=== PATIENT | female | born 1965 | race Caucasian/White ===

== ENCOUNTER → 2017-12-14 | Outpatient (CLI) | payer BC ==
[~2017-12-14] MED LIST: BUPR150ER PO; CALCAVITD PO; CHOL10002 PO; CLON.5 PO; CLON1 PO; CYCL10 PO; Coq-1030 MG PO; DHEA PO; DULO60 PO; ERGO50000 PO; ESCI10 PO; ESCI5; FISH OIL 1,0001 EAC1 PO; HYDACE5 PO; IBUP800; KETO10 PO; LORA.5 PO; LORA1; LORA1 PO; LOSA25 PO; MULVITMIND PO; Norco 10-325 T1 EACH PO; OXYACE5T PO; OXYB5 PO; PARO20; PROGESTERONE CREAM; PROM25 PO; RANI150 PO; RXCYCL10 PO; TRAZ150T57 PO; TRAZ50 PO; Zofran Odt4 MG SL
== END | disposition home or self-care (01) ==
LOC: LAB SHORT 08:02 → LAB 08:02
DX: L82.1 Other seborrheic keratosis (principal)
CPT/HCPCS: 88305

== ENCOUNTER 2017-12-19 17:34 | Emergency (ER) | payer BC ==
[~2017-12-19] VITALS: Ht 154.9 cm; Wt 74.8 kg
[~2017-12-19 17:34] MED LIST changes: -CHOL10002 PO; -Coq-1030 MG PO; -ESCI5; -FISH OIL 1,0001 EAC1 PO; -LORA1 PO; -LOSA25 PO; -OXYB5 PO
[2017-12-19 18:06] LABS: BASOPHILS ABSOLUTE AUTO 0.01 K/mm3 (0.00-0.23); BASOPHILS PERCENT AUTO 0 % (0-2); EOSINOPHILS ABSOLUTE AUTO 0.01 K/mm3 (0.00-0.68); EOSINOPHILS PERCENT AUTO 0 % (0-6); Hematocrit 41.2 % (33.0-51.0); Hemoglobin 13.8 g/dL (11.5-16.0); IMMATURE GRAN ABSOLUTE AUTO 0.01 K/mm3 (0.00-0.10); IMMATURE GRAN PERCENT AUTO 0 % (0-1); LYMPHOCYTES ABSOLUTE AUTO 1.21 K/mm3 (0.84-5.20); LYMPHOCYTES PERCENT AUTO 36 % (21-46); MONOCYTES ABSOLUTE AUTO 0.17 K/mm3 (0.16-1.47); MONOCYTES PERCENT AUTO 5 % (4-13); Mean Corpuscular HGB 30.1 pg (26.0-34.0); Mean Corpuscular HGB Conc 33.5 g/dL (31.5-36.5); Mean Corpuscular Volume 90 fL (80-100); Mean Platelet Volume 10.2 fL (9.1-12.4); NEUTROPHILS ABSOLUTE AUTO 1.98 K/mm3 (1.96-9.15); NEUTROPHILS PERCENT AUTO 58 % (41-73); Platelet Count 203 K/mm3 (150-400); RDW Coefficient Variation 12.4 % (11.7-14.2); RDW Standard Deviation 40.7 fL (35.1-46.3); Red Blood Cell Count 4.59 M/mm3 (3.80-5.20); White Blood Cell Count 3.39 K/mm3 (4.00-11.30)
[2017-12-19 18:29] LABS: Alanine Aminotransfer (ALT/SGP 22 U/L (12-78); Albumin, Blood 3.5 g/dL (3.4-5.0); Alk Phos 62 U/L (50-136); Anion Gap 10 mmol/L (6-16); Aspartate Aminotrans (AST/SGOT 22 U/L (12-37); Bilirubin, Total 0.2 mg/dL (0.1-1.0); Blood Urea Nitrogen 18 mg/dL (8-24); Bun/Creatinine Ratio 23.6 (12.0-20.0); CO2, Blood 23 mmol/L (21-32); Chloride, Blood 108 mmol/L (98-108); Creatinine, Blood 0.76 mg/dL (0.40-1.00); Globulin, Blood 3.6 g/dL (2.2-4.0); Glomerular Filtration Rate >60 (60-); Glucose, Blood 96 mg/dL (70-99); Potassium, Blood 3.7 mmol/L (3.5-5.5); Sodium, Blood 141 mmol/L (136-145); Total Protein, Blood 7.1 g/dL (6.4-8.2); Troponin I <0.015 ng/mL (0.000-0.040)
[2017-12-19] MEDS ORDERED: LOSA25 PO (18:45)
[2017-12-19] MEDS ORDERED: OXYB5 PO (18:45)
[2017-12-19] MEDS ORDERED: Coq-1030 MG PO (18:46)
[2017-12-19] MEDS ORDERED: LORA1 PO (18:46)
[2017-12-19] MEDS ORDERED: CHOL10002 PO (18:47)
[2017-12-19] MEDS ORDERED: FISH OIL 1,0001 EAC1 PO (18:47)
[2017-12-19 19:28] LABS: Influenza A Negative (NEGATIVE); Influenza B Negative (NEGATIVE)
[2017-12-19 20:44] LABS: Source, Urine Clean Catch
[2017-12-19 20:48] LABS: Appearance, Urine Clear (Clear); Bilirubin, Urine Neg (Neg); Blood, Urine Neg (Neg); Color, Urine Yellow (P-Yellow); Glucose Qualitative, Urine Neg (Neg); Ketones, Urine 1+ (Neg); Leukocyte Esterase, Urine 1+ (Neg); Nitrite, Urine Neg (Neg); Protein, Urine Neg (Neg); Urobilinogen, Urine NORM (Normal)
[2017-12-19 20:56] LABS: White Blood Cells, Urine 0-2 /hpf (0-5)
[2017-12-19 20:57] LABS: Bacteria Not Seen /hpf; Red Blood Cells, Urine Not Seen /hpf (0-2); Squamous Epithelial Cells Not Seen /hpf (Few)
[2018-08-27] MEDS ORDERED: ESCI5 ×2 (09:12→09:28)
== END 2017-12-19 22:06 | disposition home or self-care (01) ==
LOC: ER 17:34
PROVIDERS: Emergency Medicine
DX: R51 Headache (principal); R07.89 Other chest pain; R53.81 Other malaise; M79.1 Myalgia; Z88.8 Allergy status to other drugs, medicaments and biological substances; Z88.2 Allergy status to sulfonamides; Z79.899 Other long term (current) drug therapy; Z87.891 Personal history of nicotine dependence
CPT/HCPCS: 36415; 70450; 70496; 70498; 71046; 80053; 81001; 84484; 85025; 87077; 87086; 87186; 87804; 93005; 93010; 96361; 96374; 96375; 99284; J1100; J1170; J1200; J1885; J2405; J7030; Q9967

== ENCOUNTER → 2018-09-19 | Outpatient (CLI) | payer BC ==
[~2018-09-19] MED LIST changes: +CHOL10002 PO; +Coq-1030 MG PO; +ESCI5; +FISH OIL 1,0001 EAC1 PO; +LORA1 PO; +LOSA25 PO; +OXYB5 PO
== END ==
LOC: LAB SHORT 14:00 → LAB 14:00
PROVIDERS: Family Medicine
DX: Z12.72 Encounter for screening for malignant neoplasm of vagina (principal); Z90.710 Acquired absence of both cervix and uterus
CPT/HCPCS: G0145

== ENCOUNTER 2018-10-17 09:53 | Day surgery (SDC) | payer BC ==
[~2018-10-17] VITALS: Ht 152.4 cm; Wt 76.8 kg
[2018-10-17] MEDS ORDERED: NAPR220 PO (10:27)
[2018-10-17] MEDS ORDERED: ACET500 PO (10:28)
[2018-10-17] MEDS ORDERED: OSTEO BI-FLEX1 EAC2 PO (10:28)
== END 2018-10-17 11:30 | disposition home or self-care (01) ==
LOC: ORSCSDS 09:53
PROVIDERS: Internal Medicine Gastroenterology
PROC: 0DJD8ZZ Inspection of Lower Intestinal Tract, Via Natural or Artificial Opening Endoscopic (ICD-10-PCS; principal; 2018-10-17 11:15)
DX: Z12.11 Encounter for screening for malignant neoplasm of colon (principal); K44.9 Diaphragmatic hernia without obstruction or gangrene; Z87.891 Personal history of nicotine dependence; Z79.899 Other long term (current) drug therapy
CPT/HCPCS: J7120

== ENCOUNTER → 2019-11-28 | Outpatient (CLI) | payer BC ==
[~2019-11-28] MED LIST changes: +ACET500 PO; +NAPR220 PO; +OSTEO BI-FLEX1 EAC2 PO
== END | disposition home or self-care (01) ==
LOC: LAB 13:51 → LAB SHORT 13:51
PROVIDERS: Family Medicine
DX: Z12.72 Encounter for screening for malignant neoplasm of vagina (principal); Z90.710 Acquired absence of both cervix and uterus
CPT/HCPCS: G0123

== ENCOUNTER → 2020-11-30 | Outpatient (CLI) | payer BC | LOC: PLD 19:09 → LAB SHORT 19:09 | PROVIDERS: Family Medicine | DX: Z12.72 Encounter for screening for malignant neoplasm of vagina (principal); Z90.710 Acquired absence of both cervix and uterus | CPT/HCPCS: G0145 ==

== ENCOUNTER 2023-11-14 01:41 | Day surgery (SDC) | payer OTHER ==
[2023-11-14 11:12] VITALS: BP 173/97
[2023-11-14] MEDS ORDERED: ZYRTEC10 M2 PO (12:22)
[2023-11-14] MEDS ORDERED: SOLI5 PO (12:22)
[2023-11-14] MEDS ORDERED: OMEP20ER PO (12:23)
== END 2023-11-14 11:35 | disposition home or self-care (01) ==
LOC: ATC 01:41
DX: N39.46 Mixed incontinence (principal); F32.9 Major depressive disorder, single episode, unspecified; K21.9 Gastro-esophageal reflux disease without esophagitis
CPT/HCPCS: 51798

== ENCOUNTER 2023-11-22 08:08 | Emergency (ER) | payer OTHER ==
[~2023-11-22] VITALS: Ht 152.4 cm; Wt 100.7 kg
[~2023-11-22 08:08] MED LIST changes: +OMEP20ER PO; +SOLI5 PO; +ZYRTEC10 M2 PO
[2023-11-22 09:22] LABS: BASOPHILS ABSOLUTE AUTO 0.06 K/mm3 (0.00-0.23); BASOPHILS PERCENT AUTO 1 % (0-2); EOSINOPHILS ABSOLUTE AUTO 0.13 K/mm3 (0.00-0.68); EOSINOPHILS PERCENT AUTO 2 % (0-6); Hematocrit 42.1 % (33.0-51.0); Hemoglobin 14.6 g/dL (11.5-16.0); IMMATURE GRAN ABSOLUTE AUTO 0.01 K/mm3 (0.00-0.10); IMMATURE GRAN PERCENT AUTO 0 % (0-1); LYMPHOCYTES ABSOLUTE AUTO 2.46 K/mm3 (0.84-5.20); LYMPHOCYTES PERCENT AUTO 42 % (21-46); MONOCYTES ABSOLUTE AUTO 0.45 K/mm3 (0.16-1.47); MONOCYTES PERCENT AUTO 8 % (4-13); Mean Corpuscular HGB 30.3 pg (26.0-34.0); Mean Corpuscular HGB Conc 34.7 g/dL (31.5-36.5); Mean Corpuscular Volume 87 fL (80-100); Mean Platelet Volume 9.9 fL (9.1-12.4); NEUTROPHILS ABSOLUTE AUTO 2.81 K/mm3 (1.96-9.15); NEUTROPHILS PERCENT AUTO 47 % (41-73); Platelet Count 235 K/mm3 (150-400); RDW Coefficient Variation 12.7 % (11.7-14.2); RDW Standard Deviation 40.3 fL (35.1-46.3); Red Blood Cell Count 4.82 M/mm3 (3.80-5.20); White Blood Cell Count 5.92 K/mm3 (4.00-11.30)
[2023-11-22] MEDS ORDERED: Ketorolac Tromethamine 30mg Vial IV ONE (10:25)
[2023-11-22] MEDS ORDERED: Methocarbamol 500 MG Tab PO ONE (10:25)
[2023-11-22] MEDS ORDERED: Acetaminophen 500 MG Tab PO ONE (10:25)
[2023-11-22] MEDS ORDERED: Ondansetron HCl 2 MG / ML 2ML Vial IV ONE (10:30)
[2023-11-22 10:37] LABS: Albumin, Blood 3.8 g/dL (3.4-5.0); Albumin/Globulin Ratio 1.1 (0.8-1.8); Bilirubin, Total 0.2 mg/dL (0.1-1.0); Bun/Creatinine Ratio 26.9 (12.0-20.0); Calcium, Blood 9.5 mg/dL (8.5-10.1); Creatinine, Blood 0.63 mg/dL (0.40-1.00); Globulin, Blood 3.6 g/dL (2.2-4.0); Potassium, Blood 4.1 mmol/L (3.5-5.5); Total Protein, Blood 7.4 g/dL (6.4-8.2)
[2023-11-22 12:23] VITALS: BP 151/91
[2023-11-22] MEDS ORDERED: Robaxin750 MG PO (12:30)
== END 2023-11-22 12:49 | disposition home or self-care (01) ==
LOC: ER 08:08
PROVIDERS: Student in an Organized Health Care Education/Training Program
DX: R07.89 Other chest pain (principal); M62.838 Other muscle spasm; F41.9 Anxiety disorder, unspecified; F32.A Depression, unspecified; Z87.891 Personal history of nicotine dependence; Z88.1 Allergy status to other antibiotic agents; Z88.2 Allergy status to sulfonamides; Z88.8 Allergy status to other drugs, medicaments and biological substances
CPT/HCPCS: 71045; 80053; 84484; 85025; 93005; 93010; 96374; 96375; 99285-25; A9270; J1885; J2405

== ENCOUNTER → 2024-12-23 | Outpatient (CLI) | payer OTHER ==
[~2024-12-23] MED LIST changes: +Robaxin750 MG PO
[2024-12-23 09:02] LABS: Source, Urine Clean Catch
[2024-12-23 11:29] LABS: Appearance, Urine Clear (Clear); Bilirubin, Urine Neg (Neg); Blood, Urine Neg (Neg); Color, Urine Yellow (P-Yellow); Glucose Qualitative, Urine Neg (Neg); Ketones, Urine Neg (Neg); Leukocyte Esterase, Urine Neg (Neg); Nitrite, Urine Neg (Neg); Protein, Urine Neg (Neg); Specific Gravity, Urine 1.005 (1.003-1.022); Urobilinogen, Urine NORM (Normal)
== END ==
LOC: LAB FUT 11-25 08:45 → LAB 09:00 → LAB SHORT 09:00
PROVIDERS: Physician Assistant
DX: N39.0 Urinary tract infection, site not specified (principal)
CPT/HCPCS: 81003; 87086